=== PATIENT | female | born 1985 | race Caucasian/White ===

== ENCOUNTER 2020-12-05 14:30 | Emergency (ER) | payer OTHER, SELFPAY ==
[2020-12-05 14:41] VITALS: BP 158/94; PULSE 99; RESP 16; TEMP 37; O2SAT 99
--- NOTE | 2020-12-05 15:18 | ED.FEMALEGU ---
HPI - Female Genitourinary General Chief complaint: Urogenital-Female Stated complaint: Kidney Storne Time Seen by Provider: 12/05/20 15:10 Source: patient, RN notes reviewed and old records reviewed Mode of arrival: ambulatory Limitations: no limitations History of Present Illness HPI Narrative: 5 year old female who presents to express care with complaints of right flank pain for the past 2 days with feelings of urinary frequency and urgency. Patient states that she has had kidney stones in the past with similar symptoms. Instructed patient that we are unable to perform x-ray study that will identify if stone is present. Patient states that she is in process of moving and can't go to ER at present time.She states that she has always passed stones on own in past and states if pain get worse or if starts running a fever she will go to ED. She reports right flank pain with no radiation of pain to abdomen, no blood noted in urine specimen but patient did take AZO yesterday evening and at 0400. Patient reports that she has not had any fevers, chills or sweats, denies any nausea or vomiting or any diarrhea. Patient dneies any vaginal discharge or itching denies any concern for STD's. . . Related Data Allergies Allergy/AdvReac Type Severity Reaction Status Date / Time No Known Allergies Allergy Verified 12/05/20 14:35 Review of Systems Review of Systems: CONSTITUTIONAL: Denies fever, chills, or sweats. EYES: Denies visual changes, redness, or discharge. ENT: Denies rhinorrhea, congestion, sore throat, or otalgia. CARDIOVASCULAR: Denies chest pain, palpitations, or edema. RESPIRATORY: Denies cough or dyspnea. GASTROINTESTINAL: Denies abdominal pain, nausea, vomiting, or diarrhea. GENITOURINARY:Positive for dysuria no visible hematuria. SKIN: Denies rash or itching. MUSCULOSKELETAL:Positive for right flank area back pain,no other joint pain, or myalgia. NEUROLOGIC: Denies headache, numbness, or weakness. PSYCHIATRIC:Positive history of anxiety or depression. All systems reviewed & are unremarkable except as noted in HPI and below PMFSH Past Medical History Medical History (Updated 12/08/20 @ 14:34 by Leah Whitehead NP) Anxiety and depression Juvenile arthritis Kidney stones Right flank pain Surgical History Surgical History (Updated 12/08/20 @ 14:33 by Leah Whitehead NP) History of lumpectomy of left breast Family History Family History (Updated 12/08/20 @ 14:34 by Leah Whitehead NP) Grandparent Cerebrovascular accident Heart disease Hypertension Social History Social History (Updated 12/08/20 @ 14:35 by Leah Whitehead NP) Smoking status: Current every day smoker Tobacco type: cigarettes Alcohol intake: unknown Substance use: former Substance use type: IV drugs Living arrangements: with family Gender identity (if verbalized by the patient): Female Comments At time of signature, agree with nursing past medical, surgical, social and family history. There is no relevant family history pertinent to the presenting complaint Exam Narrative: GENERAL: Well-appearing, well-nourished, and in mild acute distress. HEAD: Normocephalic, atraumatic. EYES: PERRLA and EOMI. ENT: Nares clear, no rhinorrhea or epistaxis. Mucous membranes moist.TM's normal with good light reflex, throat pink with no lesions or exudates, no tonsil enlargement. NECK: Supple.no lymphadenopathy CHEST: Clear to auscultation. No respiratory distress.SAO2 99% on room air HEART: Regular rate and rhythm. No murmur heard. Normal peripheral pulses. ABDOMEN: Soft, nontender, nondistended, normal active bowel sounds.urinary frequency and urgency with right flank pain for past 2 days no suprapubic pain, positive for right flank pain. EXTREMITIES: Normal range of motion. No edema. SKIN: Warm, dry, no rash. NEURO: No focal deficits. Alert and oriented x3. Course Vital Signs Vital signs: Vital Signs Temperature 37.0 C 1
== END 2020-12-05 15:35 | disposition home or self-care (01) ==
PROVIDERS: Emergency Provider Registered Nurse
DX: R10.9 Unspecified abdominal pain (principal); N39.0 Urinary tract infection, site not specified; Z87.442 Personal history of urinary calculi
CPT/HCPCS: 81003; 87077; 87086; 87088; 87186; 99213; G0463